=== PATIENT | male | born 1965 | race Caucasian/White ===

== ENCOUNTER 2017-06-12 17:07 | Inpatient (IN) | payer MEDICARE, SELFPAY ==
[~2017-06-12] VITALS: Ht 167.6 cm; Wt 122.5 kg
[2017-06-12] MEDS ORDERED: ZOLPIDEM TARTRATE 10 MG TABLET PO PRN (18:45)
[2017-06-12] MEDS ORDERED: LORazepam 2 MG TABLET PO PRN (18:45)
[2017-06-12] MEDS ORDERED: OLANZapine 5 MG RAPDIS TABLET PO PRN (18:45)
[2017-06-12] MEDS ORDERED: PNEUMOCOCCAL VACCINE POLYVALENT 0.5 ML VIAL [PPSV23] IM ONE (19:00)
[2017-06-12] MEDS ORDERED: INFLUENZA VIRUS VACCINE QVS 2017-18 (3YR+)/PF 60 MCG/0.5 ML SYRINGE IM ONE (19:00)
[2017-06-12] MEDS ORDERED: METF500T4 PO (19:36)
[2017-06-12] MEDS ORDERED: SITA50 PO (19:36)
[2017-06-12] MEDS ORDERED: LISI-660 PO (19:36)
[2017-06-12] MEDS ORDERED: INSU100V12 SQ (19:36)
[2017-06-12] MEDS ORDERED: TOPI25 PO (19:38)
[2017-06-12] MEDS ORDERED: LURA80 PO (19:38)
[2017-06-12] MEDS ORDERED: TRAZ-147 PO (19:38)
[2017-06-12 21:14] VITALS: BP 113/71
[2017-06-12 21:17] VITALS: BP 135/80
[2017-06-12] MEDS: TOPIRAMATE 25 MG TABLET PO SCH (21:44)
[2017-06-12] MEDS: TraZODone HCL 100 MG TABLET PO SCH (21:44)
[2017-06-12] MEDS ORDERED: DEXTROSE 50%-WATER 25 GM/50 ML SYRINGE IVP PRN (21:45)
[2017-06-12 21:57] LABS: GLUCOSE,POINT OF CARE 247 MG/DL (70-110)
[2017-06-12] MEDS: INSULIN DETEMIR 100 UNITS/ML SQ SCH (22:38)
[2017-06-12] MEDS: INSULIN ASPART 100 UNITS/ML SQ PRN (22:39)
[2017-06-13 04:08] VITALS: BP 150/108
[2017-06-13 05:28] LABS: GLUCOSE COMMENT 1 Received Meds; GLUCOSE,POINT OF CARE 218 MG/DL (70-110)
[2017-06-13 07:13] LABS: BASOPHILS # (AUTO) 0.03 K/uL (0.00-0.20); BASOPHILS % (AUTO) 0.5 % (0.0-2.0); EOSINOPHILS # (AUTO) 0.06 K/uL (0.00-0.70); EOSINOPHILS % (AUTO) 0.93 % (1.0-6.0); HEMATOCRIT 40.5 % (41-53); LYMPHOCYTES # (AUTO) 1.9 K/uL (1.0-4.8); LYMPHOCYTES % (AUTO) 28.8 % (22.0-44.0); MEAN CORPUSCULAR HEMOGLOBIN 29.5 pg (26.0-34.0); MEAN CORPUSCULAR HGB CONC 34.7 G/dL (31.0-37.0); MEAN CORPUSCULAR VOLUME 85 fL (80-100); MONOCYTES # (AUTO) 0.4 K/uL (0.1-1.0); NEUTROPHILS # (AUTO) 4.3 K/uL (1.8-7.7); NEUTROPHILS % (AUTO) 63.8 % (40.0-70.0); PLATELET COUNT (AUTO) 175 K/uL (150-450); RED BLOOD CELL COUNT(AUTO) 4.76 MIL/uL (4.50-5.90); RED CELL DISTRIBUTION WIDTH 14.3 % (11.5-14.5); WHITE BLOOD COUNT (AUTO) 6.8 K/uL (4.5-11.0)
[2017-06-13] MEDS: MetFORMIN HCL 500 MG TABLET PO SCH ×2 (07:25→16:58)
[2017-06-13] MEDS: INSULIN ASPART 100 UNITS/ML SQ PRN ×3 (07:26→22:29)
[2017-06-13 07:46] LABS: ALANINE AMINOTRANSFERASE 26 U/L (12-78); ALBUMIN 3.9 g/dL (3.4-5.0); ANION GAP 12 mmol/L (8-16); ASPARTATE AMINOTRANSFERASE 14 U/L (15-37); BILIRUBIN,TOTAL 1.5 mg/dL (0.1-1.0); CALCIUM, TOTAL 9.1 mg/dL (8.8-10.5); CARBON DIOXIDE 23 mmol/L (22-29); CHLORIDE 104 mmol/L (98-107); CHOL/HDL RATIO 3.2 (4.2-7.3); CREATININE 1.09 mg/dL (0.60-1.30); GLOMERULAR FILTR. RATE CALC > 60 mL/min (>60); POTASSIUM 3.7 mmol/L (3.5-5.1); SODIUM SERUM 139 mmol/L (136-145); THYROID STIMULATING HORMONE 0.55 uIU/mL (0.36-3.74); TOTAL PROTEIN, SERUM 7.7 g/dL (6.4-8.2); UREA NITROGEN, BLOOD 14 mg/dL (7-18)
[2017-06-13 07:48] LABS: HEMOGLOBIN A1C 8.4 % (4.5-6.2)
[2017-06-13 08:02] VITALS: BP 131/82
[2017-06-13] MEDS: SitaGLIPtin PHOSPHATE 50 MG TABLET PO SCH ×2 (09:22→16:58)
[2017-06-13 11:17] LABS: GLUCOSE,POINT OF CARE 233 MG/DL (70-110)
[2017-06-13 16:07] VITALS: BP 100/63
[2017-06-13 17:13] LABS: GLUCOSE,POINT OF CARE 246 MG/DL (70-110)
[2017-06-13] MEDS: TOPIRAMATE 25 MG TABLET PO SCH (20:29)
[2017-06-13] MEDS: TraZODone HCL 100 MG TABLET PO SCH (20:29)
[2017-06-13 20:37] LABS: GLUCOSE,POINT OF CARE 141 MG/DL (70-110)
[2017-06-13] MEDS ORDERED: LATUDA 40 MG PO SCH (21:00)
[2017-06-13] MEDS: INSULIN DETEMIR 100 UNITS/ML SQ SCH (22:28)
[2017-06-14 05:38] LABS: GLUCOSE COMMENT 1 Received Meds; GLUCOSE,POINT OF CARE 200 MG/DL (70-110)
[2017-06-14 05:56] VITALS: BP 131/71
[2017-06-14] MEDS: MetFORMIN HCL 500 MG TABLET PO SCH ×2 (07:08→17:02)
[2017-06-14] MEDS: INSULIN ASPART 100 UNITS/ML SQ PRN ×4 (07:08→21:24)
[2017-06-14 08:30] VITALS: BP 124/73
[2017-06-14] MEDS: SitaGLIPtin PHOSPHATE 50 MG TABLET PO SCH ×2 (09:41→17:02)
[2017-06-14 12:02] LABS: GLUCOSE,POINT OF CARE 167 MG/DL (70-110)
[2017-06-14 16:35] VITALS: BP 120/80
[2017-06-14 16:43] LABS: GLUCOSE,POINT OF CARE 184 MG/DL (70-110)
[2017-06-14] MEDS: ATORVASTATIN CALCIUM 20 MG TABLET PO SCH (20:26)
[2017-06-14] MEDS: TraZODone HCL 100 MG TABLET PO SCH (20:27)
[2017-06-14] MEDS: TOPIRAMATE 25 MG TABLET PO SCH (20:27)
[2017-06-14 21:07] LABS: GLUCOSE,POINT OF CARE 220 MG/DL (70-110)
[2017-06-14] MEDS: INSULIN DETEMIR 100 UNITS/ML SQ SCH (21:23)
[2017-06-14] MEDS: ASENAPINE 5 MG SUBLINGUAL TABLET SL SCH (21:31)
[2017-06-15 06:29] LABS: GLUCOSE COMMENT 1 Received Meds; GLUCOSE,POINT OF CARE 187 MG/DL (70-110)
[2017-06-15] MEDS: INSULIN ASPART 100 UNITS/ML SQ PRN ×4 (07:13→20:59)
[2017-06-15] MEDS: MetFORMIN HCL 500 MG TABLET PO SCH ×2 (07:17→16:56)
[2017-06-15] MEDS: LISINOPRIL 5 MG TABLET PO SCH (09:07)
[2017-06-15] MEDS: SitaGLIPtin PHOSPHATE 50 MG TABLET PO SCH ×2 (09:07→16:56)
[2017-06-15 12:08] LABS: GLUCOSE,POINT OF CARE 167 MG/DL (70-110)
[2017-06-15 17:08] LABS: GLUCOSE,POINT OF CARE 148 MG/DL (70-110)
[2017-06-15 18:00] VITALS: BP 108/63
[2017-06-15] MEDS: TraZODone HCL 100 MG TABLET PO SCH (20:55)
[2017-06-15] MEDS: ATORVASTATIN CALCIUM 20 MG TABLET PO SCH (20:56)
[2017-06-15] MEDS: TOPIRAMATE 25 MG TABLET PO SCH (20:56)
[2017-06-15] MEDS: ASENAPINE 5 MG SUBLINGUAL TABLET SL SCH (20:56)
[2017-06-15] MEDS: INSULIN DETEMIR 100 UNITS/ML SQ SCH (20:58)
[2017-06-16 00:23] LABS: GLUCOSE,POINT OF CARE 143 MG/DL (70-110)
[2017-06-16 06:23] LABS: GLUCOSE,POINT OF CARE 136 MG/DL (70-110)
[2017-06-16] MEDS: MetFORMIN HCL 500 MG TABLET PO SCH ×2 (07:14→17:05)
[2017-06-16 08:35] VITALS: BP 118/77
[2017-06-16] MEDS: SitaGLIPtin PHOSPHATE 50 MG TABLET PO SCH ×2 (08:43→17:05)
[2017-06-16] MEDS: LISINOPRIL 5 MG TABLET PO SCH (08:43)
[2017-06-16 09:31] VITALS: BP 118/77
[2017-06-16] MEDS: INSULIN ASPART 100 UNITS/ML SQ PRN ×3 (11:41→21:11)
[2017-06-16 11:48] LABS: GLUCOSE,POINT OF CARE 153 MG/DL (70-110)
[2017-06-16 19:03] LABS: GLUCOSE,POINT OF CARE 147 MG/DL (70-110)
[2017-06-16 19:53] VITALS: BP 141/88
[2017-06-16] MEDS: TOPIRAMATE 25 MG TABLET PO SCH (20:39)
[2017-06-16] MEDS: TraZODone HCL 100 MG TABLET PO SCH (20:39)
[2017-06-16] MEDS: ATORVASTATIN CALCIUM 20 MG TABLET PO SCH (20:39)
[2017-06-16] MEDS: ASENAPINE 5 MG SUBLINGUAL TABLET SL SCH (20:39)
[2017-06-16] MEDS: INSULIN DETEMIR 100 UNITS/ML SQ SCH (21:10)
[2017-06-17 00:08] LABS: GLUCOSE,POINT OF CARE 158 MG/DL (70-110)
[2017-06-17 06:06] VITALS: BP 105/70
[2017-06-17 06:08] LABS: GLUCOSE,POINT OF CARE 181 MG/DL (70-110)
[2017-06-17] MEDS: MetFORMIN HCL 500 MG TABLET PO SCH (06:57)
[2017-06-17] MEDS: INSULIN ASPART 100 UNITS/ML SQ PRN (07:17)
[2017-06-17 08:30] VITALS: BP 105/70
[2017-06-17] MEDS: LISINOPRIL 5 MG TABLET PO SCH (08:57)
[2017-06-17] MEDS: SitaGLIPtin PHOSPHATE 50 MG TABLET PO SCH (08:57)
[2017-06-17] MEDS ORDERED: ASEN5TAB6 SL (10:36)
[2017-06-17] MEDS ORDERED: ATOR20TA86 PO (10:37)
[2017-06-17 11:38] LABS: GLUCOSE,POINT OF CARE 136 MG/DL (70-110)
[2017-06-17] MEDS ORDERED: MAG HYDROX/AL HYDROX/SIMETH ES 30 ML SUSPENSION UDCUP PO PRN (12:00)
[2017-06-17] MEDS ORDERED: HydrOXYzine PAMOATE 50 MG CAPSULE PO PRN (12:00)
[2017-06-17] MEDS ORDERED: PROMETHAZINE HCL 25 MG TABLET PO PRN (12:00)
[2017-06-17] MEDS ORDERED: ACETAMINOPHEN 325 MG TABLET PO PRN (12:00)
[2017-06-17] MEDS ORDERED: LOPERAMIDE HCL 2 MG CAPSULE PO PRN (12:00)
[2017-06-17] MEDS ORDERED: MAGNESIUM HYDROXIDE SUSPENSION 30 ML UDCUP PO PRN (12:00)
[2017-06-17] MEDS ORDERED: GuaiFENesin/D-METHORPHAN [SUGAR-FREE] 200-20MG/10 ML SYRUP UDCUP PO PRN (12:00)
[2017-06-17] MEDS ORDERED: THIAMINE HCL 100 MG TABLET PO SCH (17:00)
[2017-06-18] MEDS ORDERED: MULTIVITAMINS WITH MINERALS, THERAPEUTIC TABLET PO SCH (09:00)
[2017-06-18] MEDS ORDERED: FOLIC ACID 1 MG TABLET PO SCH (09:00)
== END 2017-06-17 12:30 | disposition home or self-care (01) | DRG 885 ==
LOC: 3EX 18:38 → EDSTATUS 19:44
PROVIDERS: ADMIT Psychiatry & Neurology Psychiatry; ATTEND Psychiatry & Neurology Psychiatry
DX: F25.0 Schizoaffective disorder, bipolar type (principal); R45.851 Suicidal ideations; E11.9 Type 2 diabetes mellitus without complications; I10 Essential (primary) hypertension; Z28.21 Immunization not carried out because of patient refusal; Z56.0 Unemployment, unspecified; E78.5 Hyperlipidemia, unspecified; G47.30 Sleep apnea, unspecified; M19.90 Unspecified osteoarthritis, unspecified site; Z80.42 Family history of malignant neoplasm of prostate; Z83.3 Family history of diabetes mellitus; Z91.14 Patient's other noncompliance with medication regimen; Z80.3 Family history of malignant neoplasm of breast
CPT/HCPCS: 82962; 83036; 84439; 84443; 87081; 90471; 94660

== ENCOUNTER 2017-10-05 12:15 | Inpatient (IN) | payer MEDICARE ==
[~2017-10-05] VITALS: Ht 172.7 cm; Wt 127.9 kg
[~2017-10-05 12:15] MED LIST: ASEN5TAB6 SL; ATOR20TA86 PO; INSU100V12 SQ; LISI-660 PO; METF500T4 PO; SITA50 PO; TOPI25 PO; TRAZ-147 PO
[2017-10-05 12:20] VITALS: BP 136/72
[2017-10-05] MEDS ORDERED: LORazepam 2 MG TABLET PO PRN (13:00)
[2017-10-05] MEDS ORDERED: OLANZapine 5 MG RAPDIS TABLET PO PRN (13:00)
[2017-10-05] MEDS ORDERED: ZOLPIDEM TARTRATE 10 MG TABLET PO PRN (13:00)
[2017-10-05] MEDS ORDERED: PNEUMOCOCCAL VACCINE POLYVALENT 0.5 ML VIAL [PPSV23] IM ONE ×2 (13:30→14:00)
[2017-10-05 16:34] VITALS: BP 136/79
[2017-10-05] MEDS ORDERED: DEXTROSE 50%-WATER 25 GM/50 ML SYRINGE IVP PRN (18:15)
[2017-10-05 18:48] LABS: AMPHET/METH SCREEN,URINE NEGATIVE (NEGATIVE); BARBITURATE SCREEN, URINE NEGATIVE (NEGATIVE); BENZODIAZEPINES SCREEN,URINE NEGATIVE (NEGATIVE); CANNABINOID SCREEN,URINE NEGATIVE (NEGATIVE); COCAINE SCREEN,URINE NEGATIVE (NEGATIVE); METHADONE SCREEN, URINE NEGATIVE (NEGATIVE); OPIATE SCREEN,URINE NEGATIVE (NEGATIVE)
[2017-10-05 18:50] LABS: APPEARANCE,URINE CLEAR (CLEAR); BILIRUBIN,URINE NEGATIVE (NEGATIVE); GLUCOSE, URINE (UA) >=1000 mg/dL (NEGATIVE); KETONES,URINE NEGATIVE (NEGATIVE); LEUKOCYTE ESTERASE ,URINE NEGATIVE (NEGATIVE); NITRATE,URINE NEGATIVE (NEGATIVE); OCCULT BLOOD,URINE NEGATIVE (NEGATIVE); PH,URINE 6.5 (5.0-8.0); PROTEIN,URINE SEE CONFIRM (NEGATIVE); UROBILINOGEN,URINE 0.2 mg/dL (<=1.0)
[2017-10-05 19:00] LABS: BASOPHILS % (AUTO) 0.4 % (0.0-2.0); HEMATOCRIT 40.4 % (41-53); HEMOGLOBIN 14.2 g/dL (13.5-17.5); LYMPHOCYTES # (AUTO) 2.4 K/uL (1.0-4.8); LYMPHOCYTES % (AUTO) 28.1 % (22.0-44.0); MEAN CORPUSCULAR HEMOGLOBIN 30.5 pg (26.0-34.0); MEAN CORPUSCULAR HGB CONC 35.1 G/dL (31.0-37.0); MEAN CORPUSCULAR VOLUME 87 fL (80-100); MONOCYTES # (AUTO) 0.5 K/uL (0.1-1.0); MONOCYTES % (AUTO) 6.2 % (2.0-9.0); NEUTROPHILS # (AUTO) 5.6 K/uL (1.8-7.7); NEUTROPHILS % (AUTO) 64.3 % (40.0-70.0); PLATELET COUNT (AUTO) 200 K/uL (150-450); RED BLOOD CELL COUNT(AUTO) 4.66 MIL/uL (4.50-5.90); RED CELL DISTRIBUTION WIDTH 14.8 % (11.5-14.5)
[2017-10-05 19:02] LABS: PHENCYCLIDINE SCREEN,URINE NEGATIVE (NEGATIVE)
[2017-10-05 19:11] LABS: HEMOGLOBIN A1C 8.5 % (4.5-6.2)
[2017-10-05 19:20] LABS: SULFOSALICYLIC ACID,URINE 2+ (Negative)
[2017-10-05 19:25] LABS: BACTERIA,URINE Rare /HPF (None Seen); RBC,URINE None Seen /HPF (0-2); SQUAMOUS EPITHELIAL CELL,UR Rare /LPF (None Seen); WBC,URINE 0-2 /HPF (0-5)
[2017-10-05 19:40] LABS: ALANINE AMINOTRANSFERASE 34 U/L (12-78); ALBUMIN 3.6 g/dL (3.4-5.0); ALKALINE PHOSPHATASE 68 U/L (46-116); ANION GAP 11 mmol/L (8-16); ASPARTATE AMINOTRANSFERASE 24 U/L (15-37); CALCIUM, TOTAL 8.7 mg/dL (8.8-10.5); CARBON DIOXIDE 23 mmol/L (22-29); CHLORIDE 101 mmol/L (98-107); CHOL/HDL RATIO 5.3 (4.2-7.3); CHOLESTEROL 189 mg/dL (131-200); CREATININE 1.03 mg/dL (0.60-1.30); GLOMERULAR FILTR. RATE CALC > 60 mL/min (>60); GLUCOSE,RANDOM 237 mg/dL (70-110); HDL CHOLESTEROL 36 mg/dL (40-60); LDL CHOL (CALC.) 104 mg/dL (0-130); POTASSIUM 3.5 mmol/L (3.5-5.1); SODIUM SERUM 135 mmol/L (136-145); THYROID STIMULATING HORMONE 0.56 uIU/mL (0.36-3.74); TOTAL PROTEIN, SERUM 7.5 g/dL (6.4-8.2); TRIGLYCERIDES 247 mg/dL (15-150); UREA NITROGEN, BLOOD 13 mg/dL (7-18)
[2017-10-05] MEDS: TOPIRAMATE 100 MG TABLET PO SCH (20:10)
[2017-10-05] MEDS: ATORVASTATIN CALCIUM 20 MG TABLET PO SCH (20:10)
[2017-10-05] MEDS: ASENAPINE 5 MG SUBLINGUAL TABLET SL SCH (20:11)
[2017-10-05] MEDS: TraZODone HCL 100 MG TABLET PO SCH (20:11)
[2017-10-05 20:23] LABS: GLUCOMETER DEV NAME(LOC) 3EX 1; GLUCOSE,POINT OF CARE 207 MG/DL (70-110)
[2017-10-05] MEDS: INSULIN ASPART 100 UNITS/ML SQ PRN (20:33)
[2017-10-05] MEDS: INSULIN DETEMIR 100 UNITS/ML SQ SCH (20:33)
[2017-10-06 06:05] VITALS: BP 134/80
[2017-10-06 06:08] LABS: GLUCOMETER DEV NAME(LOC) 3EI B; GLUCOSE,POINT OF CARE 206 MG/DL (70-110)
[2017-10-06] MEDS: INSULIN ASPART 100 UNITS/ML SQ PRN ×4 (06:55→20:57)
[2017-10-06] MEDS: MetFORMIN HCL 500 MG TABLET PO SCH ×2 (07:10→17:34)
[2017-10-06 07:12] LABS: BASOPHILS # (AUTO) 0.04 K/uL (0.00-0.20); BASOPHILS % (AUTO) 0.6 % (0.0-2.0); EOSINOPHILS # (AUTO) 0.06 K/uL (0.00-0.70); EOSINOPHILS % (AUTO) 0.78 % (1.0-6.0); HEMATOCRIT 42.5 % (41-53); HEMOGLOBIN 14.7 g/dL (13.5-17.5); LYMPHOCYTES # (AUTO) 1.7 K/uL (1.0-4.8); LYMPHOCYTES % (AUTO) 23.8 % (22.0-44.0); MEAN CORPUSCULAR HEMOGLOBIN 29.9 pg (26.0-34.0); MEAN CORPUSCULAR HGB CONC 34.5 G/dL (31.0-37.0); MEAN CORPUSCULAR VOLUME 87 fL (80-100); MONOCYTES # (AUTO) 0.4 K/uL (0.1-1.0); MONOCYTES % (AUTO) 5.9 % (2.0-9.0); NEUTROPHILS # (AUTO) 4.9 K/uL (1.8-7.7); NEUTROPHILS % (AUTO) 68.9 % (40.0-70.0); PLATELET COUNT (AUTO) 186 K/uL (150-450); RED BLOOD CELL COUNT(AUTO) 4.91 MIL/uL (4.50-5.90)
[2017-10-06 07:21] LABS: HEMOGLOBIN A1C 8.3 % (4.5-6.2)
[2017-10-06 07:31] LABS: ALANINE AMINOTRANSFERASE 37 U/L (12-78); ALBUMIN 3.8 g/dL (3.4-5.0); ALKALINE PHOSPHATASE 68 U/L (46-116); ANION GAP 10 mmol/L (8-16); ASPARTATE AMINOTRANSFERASE 29 U/L (15-37); BILIRUBIN,TOTAL 1.3 mg/dL (0.1-1.0); CALCIUM, TOTAL 8.9 mg/dL (8.8-10.5); CARBON DIOXIDE 24 mmol/L (22-29); CHLORIDE 102 mmol/L (98-107); CHOL/HDL RATIO 5.4 (4.2-7.3); CHOLESTEROL 193 mg/dL (131-200); CREATININE 0.97 mg/dL (0.60-1.30); FREE T4 (FREE THYROXINE) 1.02 ng/dL (0.76-1.46); GLOMERULAR FILTR. RATE CALC > 60 mL/min (>60); GLUCOSE,RANDOM 229 mg/dL (70-110); HDL CHOLESTEROL 36 mg/dL (40-60); LDL CHOL (CALC.) 114 mg/dL (0-130); POTASSIUM 3.5 mmol/L (3.5-5.1); SODIUM SERUM 136 mmol/L (136-145); TOTAL PROTEIN, SERUM 7.7 g/dL (6.4-8.2); TRIGLYCERIDES 215 mg/dL (15-150); UREA NITROGEN, BLOOD 12 mg/dL (7-18)
[2017-10-06] MEDS: LISINOPRIL 5 MG TABLET PO SCH (09:05)
[2017-10-06] MEDS: TOPIRAMATE 25 MG TABLET PO SCH (09:07)
[2017-10-06] MEDS: SitaGLIPtin PHOSPHATE 50 MG TABLET PO SCH ×2 (09:07→16:50)
[2017-10-06 09:17] VITALS: BP 119/85
[2017-10-06 11:11] LABS: GLUCOMETER DEV NAME(LOC) 3EX 1; GLUCOSE,POINT OF CARE 181 MG/DL (70-110)
[2017-10-06 16:37] LABS: GLUCOMETER DEV NAME(LOC) 3EX 1; GLUCOSE,POINT OF CARE 179 MG/DL (70-110)
[2017-10-06 19:10] VITALS: BP 116/62
[2017-10-06 20:28] LABS: GLUCOMETER DEV NAME(LOC) 3EX 1; GLUCOSE,POINT OF CARE 197 MG/DL (70-110)
[2017-10-06] MEDS: ATORVASTATIN CALCIUM 20 MG TABLET PO SCH (20:32)
[2017-10-06] MEDS: ASENAPINE 5 MG SUBLINGUAL TABLET SL SCH (20:32)
[2017-10-06] MEDS: TraZODone HCL 100 MG TABLET PO SCH (20:32)
[2017-10-06] MEDS: TOPIRAMATE 100 MG TABLET PO SCH (20:32)
[2017-10-06] MEDS: INSULIN DETEMIR 100 UNITS/ML SQ SCH (20:56)
[2017-10-07 05:44] LABS: GLUCOMETER DEV NAME(LOC) 3EI B; GLUCOSE,POINT OF CARE 205 MG/DL (70-110)
[2017-10-07 05:46] VITALS: BP 126/80
[2017-10-07] MEDS: INSULIN ASPART 100 UNITS/ML SQ PRN ×4 (06:41→20:48)
[2017-10-07] MEDS: MetFORMIN HCL 500 MG TABLET PO SCH ×2 (06:42→16:35)
[2017-10-07 08:00] VITALS: BP 149/89
[2017-10-07] MEDS: SitaGLIPtin PHOSPHATE 50 MG TABLET PO SCH ×2 (09:01→16:34)
[2017-10-07] MEDS: TOPIRAMATE 25 MG TABLET PO SCH (09:02)
[2017-10-07] MEDS: LISINOPRIL 5 MG TABLET PO SCH (09:02)
[2017-10-07 11:38] LABS: GLUCOMETER DEV NAME(LOC) 3EX 1; GLUCOSE,POINT OF CARE 156 MG/DL (70-110)
[2017-10-07] MEDS ORDERED: GuaiFENesin/D-METHORPHAN [SUGAR-FREE] 200-20MG/10 ML SYRUP UDCUP PO PRN (12:00)
[2017-10-07] MEDS ORDERED: HydrOXYzine PAMOATE 50 MG CAPSULE PO PRN (12:00)
[2017-10-07] MEDS ORDERED: MAG HYDROX/AL HYDROX/SIMETH ES 30 ML SUSPENSION UDCUP PO PRN (12:00)
[2017-10-07] MEDS ORDERED: PROMETHAZINE HCL 25 MG TABLET PO PRN (12:00)
[2017-10-07] MEDS ORDERED: ACETAMINOPHEN 325 MG TABLET PO PRN (12:00)
[2017-10-07] MEDS ORDERED: LOPERAMIDE HCL 2 MG CAPSULE PO PRN (12:00)
[2017-10-07] MEDS ORDERED: MAGNESIUM HYDROXIDE SUSPENSION 30 ML UDCUP PO PRN (12:00)
[2017-10-07] MEDS: THIAMINE HCL 100 MG TABLET PO SCH (16:34)
[2017-10-07 16:58] LABS: GLUCOMETER DEV NAME(LOC) 3EX 1; GLUCOSE,POINT OF CARE 190 MG/DL (70-110)
[2017-10-07 17:03] VITALS: BP 146/90
[2017-10-07] MEDS: TraZODone HCL 150 MG TABLET PO SCH (20:12)
[2017-10-07] MEDS: TOPIRAMATE 100 MG TABLET PO SCH (20:12)
[2017-10-07] MEDS: ASENAPINE 5 MG SUBLINGUAL TABLET SL SCH (20:12)
[2017-10-07] MEDS: ATORVASTATIN CALCIUM 20 MG TABLET PO SCH (20:12)
[2017-10-07] MEDS: CarBAMazepine 200 MG TABLET PO SCH (20:32)
[2017-10-07 20:48] LABS: GLUCOMETER DEV NAME(LOC) 3EX 1; GLUCOSE,POINT OF CARE 210 MG/DL (70-110)
[2017-10-07] MEDS: INSULIN DETEMIR 100 UNITS/ML SQ SCH (21:01)
[2017-10-08 06:03] LABS: GLUCOMETER DEV NAME(LOC) 3EX 1; GLUCOSE,POINT OF CARE 192 MG/DL (70-110)
[2017-10-08] MEDS: INSULIN ASPART 100 UNITS/ML SQ PRN ×4 (06:53→21:28)
[2017-10-08] MEDS: MetFORMIN HCL 500 MG TABLET PO SCH ×2 (07:08→17:22)
[2017-10-08] MEDS: MULTIVITAMINS WITH MINERALS, THERAPEUTIC TABLET PO SCH (08:46)
[2017-10-08] MEDS: AmLODIPine BESYLATE 5 MG TABLET PO SCH (08:47)
[2017-10-08] MEDS: THIAMINE HCL 100 MG TABLET PO SCH ×2 (08:48→16:38)
[2017-10-08] MEDS: SitaGLIPtin PHOSPHATE 50 MG TABLET PO SCH ×2 (08:48→16:38)
[2017-10-08] MEDS: TOPIRAMATE 25 MG TABLET PO SCH (08:48)
[2017-10-08] MEDS: FOLIC ACID 1 MG TABLET PO SCH (08:49)
[2017-10-08] MEDS: LISINOPRIL 5 MG TABLET PO SCH (08:51)
[2017-10-08 09:00] VITALS: BP 130/78
[2017-10-08 11:38] LABS: GLUCOMETER DEV NAME(LOC) 3EX 1; GLUCOSE,POINT OF CARE 174 MG/DL (70-110)
[2017-10-08] MEDS: ASENAPINE 5 MG SUBLINGUAL TABLET SL SCH (17:22)
[2017-10-08 17:28] LABS: GLUCOMETER DEV NAME(LOC) 3EX 1; GLUCOSE,POINT OF CARE 204 MG/DL (70-110)
[2017-10-08 20:01] VITALS: BP 135/75
[2017-10-08] MEDS: TOPIRAMATE 100 MG TABLET PO SCH (21:12)
[2017-10-08] MEDS: CarBAMazepine 200 MG TABLET PO SCH (21:12)
[2017-10-08] MEDS: TraZODone HCL 150 MG TABLET PO SCH (21:12)
[2017-10-08] MEDS: ATORVASTATIN CALCIUM 20 MG TABLET PO SCH (21:12)
[2017-10-08 21:23] LABS: GLUCOMETER DEV NAME(LOC) 3EX 1; GLUCOSE,POINT OF CARE 230 MG/DL (70-110)
[2017-10-08] MEDS: INSULIN DETEMIR 100 UNITS/ML SQ SCH (21:26)
[2017-10-09 05:20] VITALS: BP 128/74
[2017-10-09 05:33] LABS: GLUCOMETER DEV NAME(LOC) 3EI B; GLUCOSE,POINT OF CARE 227 MG/DL (70-110)
[2017-10-09] MEDS: MetFORMIN HCL 500 MG TABLET PO SCH ×2 (07:03→16:30)
[2017-10-09] MEDS: INSULIN ASPART 100 UNITS/ML SQ PRN ×4 (07:04→20:59)
[2017-10-09] MEDS: FOLIC ACID 1 MG TABLET PO SCH (08:24)
[2017-10-09] MEDS: MULTIVITAMINS WITH MINERALS, THERAPEUTIC TABLET PO SCH (08:24)
[2017-10-09] MEDS: SitaGLIPtin PHOSPHATE 50 MG TABLET PO SCH ×2 (08:24→16:30)
[2017-10-09] MEDS: AmLODIPine BESYLATE 5 MG TABLET PO SCH (08:24)
[2017-10-09] MEDS: TOPIRAMATE 25 MG TABLET PO SCH (08:25)
[2017-10-09] MEDS: THIAMINE HCL 100 MG TABLET PO SCH ×2 (08:25→16:30)
[2017-10-09] MEDS: ASENAPINE 5 MG SUBLINGUAL TABLET SL SCH ×2 (08:26→16:30)
[2017-10-09] MEDS: LISINOPRIL 5 MG TABLET PO SCH (08:31)
[2017-10-09 09:26] VITALS: BP 107/67
[2017-10-09 11:28] LABS: GLUCOMETER DEV NAME(LOC) 3EX 1; GLUCOSE,POINT OF CARE 162 MG/DL (70-110)
[2017-10-09 16:53] LABS: GLUCOMETER DEV NAME(LOC) 3EX 1; GLUCOSE,POINT OF CARE 218 MG/DL (70-110)
[2017-10-09 17:03] VITALS: BP 126/76
[2017-10-09] MEDS: ATORVASTATIN CALCIUM 20 MG TABLET PO SCH (20:19)
[2017-10-09] MEDS: TraZODone HCL 150 MG TABLET PO SCH (20:19)
[2017-10-09] MEDS: CarBAMazepine 200 MG TABLET PO SCH (20:19)
[2017-10-09] MEDS: TOPIRAMATE 100 MG TABLET PO SCH (20:19)
[2017-10-09 20:57] LABS: GLUCOMETER DEV NAME(LOC) 3EX 1; GLUCOSE,POINT OF CARE 164 MG/DL (70-110)
[2017-10-09] MEDS: INSULIN DETEMIR 100 UNITS/ML SQ SCH (20:58)
[2017-10-10 05:20] VITALS: BP 126/68
[2017-10-10 05:28] LABS: GLUCOMETER DEV NAME(LOC) 3EI B; GLUCOSE,POINT OF CARE 265 MG/DL (70-110)
[2017-10-10] MEDS: INSULIN ASPART 100 UNITS/ML SQ PRN ×4 (07:06→20:56)
[2017-10-10] MEDS: MetFORMIN HCL 500 MG TABLET PO SCH ×2 (07:23→16:31)
[2017-10-10 08:11] VITALS: BP 116/81
[2017-10-10] MEDS: FOLIC ACID 1 MG TABLET PO SCH (08:32)
[2017-10-10] MEDS: TOPIRAMATE 25 MG TABLET PO SCH (08:32)
[2017-10-10] MEDS: AmLODIPine BESYLATE 5 MG TABLET PO SCH (08:32)
[2017-10-10] MEDS: MULTIVITAMINS WITH MINERALS, THERAPEUTIC TABLET PO SCH (08:32)
[2017-10-10] MEDS: SitaGLIPtin PHOSPHATE 50 MG TABLET PO SCH ×2 (08:32→16:26)
[2017-10-10] MEDS: THIAMINE HCL 100 MG TABLET PO SCH ×2 (08:32→16:26)
[2017-10-10] MEDS: LISINOPRIL 5 MG TABLET PO SCH (08:33)
[2017-10-10] MEDS: ASENAPINE 5 MG SUBLINGUAL TABLET SL SCH ×2 (08:33→16:26)
[2017-10-10 11:23] LABS: GLUCOMETER DEV NAME(LOC) 3EX 1; GLUCOSE,POINT OF CARE 179 MG/DL (70-110)
[2017-10-10] MEDS ORDERED: TRAZ150 PO (16:16)
[2017-10-10] MEDS ORDERED: TOPI25 PO (16:16)
[2017-10-10] MEDS ORDERED: TOPI100T31 PO (16:16)
[2017-10-10] MEDS ORDERED: ASEN5TAB6 SL (16:16)
[2017-10-10 16:37] LABS: GLUCOMETER DEV NAME(LOC) 3EX 1; GLUCOSE,POINT OF CARE 270 MG/DL (70-110)
[2017-10-10 17:51] VITALS: BP 121/71
[2017-10-10] MEDS: TOPIRAMATE 100 MG TABLET PO SCH (20:11)
[2017-10-10] MEDS: ATORVASTATIN CALCIUM 20 MG TABLET PO SCH (20:11)
[2017-10-10] MEDS: TraZODone HCL 150 MG TABLET PO SCH (20:12)
[2017-10-10] MEDS: CarBAMazepine 200 MG TABLET PO SCH (20:12)
[2017-10-10 20:23] LABS: GLUCOMETER DEV NAME(LOC) 3EX 1; GLUCOSE,POINT OF CARE 143 MG/DL (70-110)
[2017-10-10] MEDS ORDERED: AMLO-511 PO (20:33)
[2017-10-10] MEDS ORDERED: CARB200T6 PO (20:39)
[2017-10-10] MEDS: INSULIN DETEMIR 100 UNITS/ML SQ SCH (20:57)
[2017-10-11 02:03] VITALS: BP 138/94
[2017-10-11 06:17] LABS: GLUCOMETER DEV NAME(LOC) 3EI B; GLUCOSE,POINT OF CARE 196 MG/DL (70-110)
[2017-10-11] MEDS: MetFORMIN HCL 500 MG TABLET PO SCH (07:11)
[2017-10-11] MEDS: INSULIN ASPART 100 UNITS/ML SQ PRN ×2 (07:11→11:32)
[2017-10-11] MEDS: ASENAPINE 5 MG SUBLINGUAL TABLET SL SCH (08:50)
[2017-10-11] MEDS: SitaGLIPtin PHOSPHATE 50 MG TABLET PO SCH (08:50)
[2017-10-11] MEDS: MULTIVITAMINS WITH MINERALS, THERAPEUTIC TABLET PO SCH (08:50)
[2017-10-11] MEDS: FOLIC ACID 1 MG TABLET PO SCH (08:50)
[2017-10-11] MEDS: AmLODIPine BESYLATE 5 MG TABLET PO SCH (08:50)
[2017-10-11] MEDS: THIAMINE HCL 100 MG TABLET PO SCH (08:50)
[2017-10-11] MEDS: LISINOPRIL 5 MG TABLET PO SCH (08:51)
[2017-10-11] MEDS: TOPIRAMATE 25 MG TABLET PO SCH (08:51)
[2017-10-11 09:11] VITALS: BP 123/86
[2017-10-11 14:57] LABS: GLUCOMETER DEV NAME(LOC) 3EX 1; GLUCOSE,POINT OF CARE 168 MG/DL (70-110)
== END 2017-10-11 12:30 | disposition home or self-care (01) | DRG 885 ==
LOC: 3EX 13:09
PROVIDERS: ADMIT Psychiatry & Neurology Psychiatry; ATTEND Psychiatry & Neurology Psychiatry
PROC: 3E0234Z Introduction of Serum, Toxoid and Vaccine into Muscle, Percutaneous Approach (ICD-10-PCS; principal; 2017-10-05)
DX: F31.9 Bipolar disorder, unspecified (principal); R45.851 Suicidal ideations; Z68.41 Body mass index [BMI] 40.0-44.9, adult; E11.9 Type 2 diabetes mellitus without complications; E78.5 Hyperlipidemia, unspecified; G47.33 Obstructive sleep apnea (adult) (pediatric); I10 Essential (primary) hypertension; E66.9 Obesity, unspecified; M19.90 Unspecified osteoarthritis, unspecified site; Z82.49 Family history of ischemic heart disease and other diseases of the circulatory system; Z91.19 Patient's noncompliance with other medical treatment and regimen; Z83.3 Family history of diabetes mellitus; Z90.49 Acquired absence of other specified parts of digestive tract; Z23 Encounter for immunization
CPT/HCPCS: 80307; 82652; 82962; 83036; 84439; 84443; 90471; 94660

== ENCOUNTER → 2018-01-21 | Outpatient (CLI) | payer MEDICARE ==
[~2018-01-21] MED LIST changes: +AMLO-511 PO; +CARB200T6 PO; -METF500T4 PO; +METF500T6 PO; +TOPI100T31 PO; -TRAZ-147 PO; +TRAZ150 PO
[2018-01-21 17:04] LABS: BASOPHILS % (AUTO) 0.5 % (0.0-2.0); EOSINOPHILS % (AUTO) 0.5 % (1.0-6.0); HEMATOCRIT 41.5 % (41-53); HEMOGLOBIN 14.6 g/dL (13.5-17.5); LYMPHOCYTES # (AUTO) 1.8 K/uL (1.0-4.8); LYMPHOCYTES % (AUTO) 25.9 % (22.0-44.0); MEAN CORPUSCULAR HEMOGLOBIN 29.7 pg (26.0-34.0); MEAN CORPUSCULAR HGB CONC 35.2 G/dL (31.0-37.0); MEAN CORPUSCULAR VOLUME 84 fL (80-100); MONOCYTES # (AUTO) 0.5 K/uL (0.1-1.0); MONOCYTES % (AUTO) 6.4 % (2.0-9.0); NEUTROPHILS # (AUTO) 4.8 K/uL (1.8-7.7); NEUTROPHILS % (AUTO) 66.7 % (40.0-70.0); PLATELET COUNT (AUTO) 177 K/uL (150-450); RED BLOOD CELL COUNT(AUTO) 4.92 MIL/uL (4.50-5.90); RED CELL DISTRIBUTION WIDTH 13.8 % (11.5-14.5)
[2018-01-21 17:54] LABS: ALANINE AMINOTRANSFERASE 27 U/L (12-78); ALBUMIN 4.3 g/dL (3.4-5.0); ALKALINE PHOSPHATASE 80 U/L (46-116); ANION GAP 10 mmol/L (8-16); ASPARTATE AMINOTRANSFERASE 18 U/L (15-37); BILIRUBIN,TOTAL 0.5 mg/dL (0.1-1.0); CALCIUM, TOTAL 9.3 mg/dL (8.8-10.5); CARBAMAZEPINE (TEGRETOL) 2.5 mcg/mL (4.0-12.0); CARBON DIOXIDE 26 mmol/L (22-29); CHLORIDE 105 mmol/L (98-107); CREATININE 0.99 mg/dL (0.60-1.30); GLOMERULAR FILTR. RATE CALC > 60 mL/min (>60); GLUCOSE,RANDOM 154 mg/dL (70-110); POTASSIUM 4.5 mmol/L (3.5-5.1); SODIUM SERUM 141 mmol/L (136-145); TOTAL PROTEIN, SERUM 7.7 g/dL (6.4-8.2); UREA NITROGEN, BLOOD 12 mg/dL (7-18)
== END | disposition home or self-care (01) ==
LOC: LABMN 10:45
PROVIDERS: ATTEND Psychiatry & Neurology Psychiatry
DX: F25.9 Schizoaffective disorder, unspecified (principal)

== ENCOUNTER 2018-08-12 20:55 | Emergency (ER) | payer MEDICARE ==
[~2018-08-12] VITALS: Ht 177.8 cm; Wt 86.4 kg
[~2018-08-12 20:55] MED LIST changes: +METF-960 PO; -METF500T6 PO
[2018-08-12 21:42] LABS: BASOPHILS % (AUTO) 0.5 % (0.0-2.0); EOSINOPHILS % (AUTO) 0.5 % (1.0-6.0); HEMATOCRIT 39.8 % (41-53); HEMOGLOBIN 14.1 g/dL (13.5-17.5); LYMPHOCYTES # (AUTO) 2.2 K/uL (1.0-4.8); MEAN CORPUSCULAR HEMOGLOBIN 30.9 pg (26.0-34.0); MEAN CORPUSCULAR HGB CONC 35.4 G/dL (31.0-37.0); MEAN CORPUSCULAR VOLUME 87 fL (80-100); MONOCYTES # (AUTO) 0.6 K/uL (0.1-1.0); MONOCYTES % (AUTO) 8.3 % (2.0-9.0); NEUTROPHILS # (AUTO) 3.9 K/uL (1.8-7.7); NEUTROPHILS % (AUTO) 57.7 % (40.0-70.0); PLATELET COUNT (AUTO) 165 K/uL (150-450); RED BLOOD CELL COUNT(AUTO) 4.56 MIL/uL (4.50-5.90); RED CELL DISTRIBUTION WIDTH 13.6 % (11.5-14.5)
[2018-08-12] MEDS ORDERED: LORazepam 2 MG TABLET PO ONE (21:45)
[2018-08-12 21:49] LABS: ANION GAP 8 mmol/L (8-16); CALCIUM, TOTAL 8.5 mg/dL (8.8-10.5); CARBON DIOXIDE 28 mmol/L (22-29); CHLORIDE 106 mmol/L (98-107); GLOMERULAR FILTR. RATE CALC > 60 mL/min (>60); GLUCOSE,RANDOM 124 mg/dL (70-110); POTASSIUM 3.4 mmol/L (3.5-5.1); SODIUM SERUM 142 mmol/L (136-145); UREA NITROGEN, BLOOD 19 mg/dL (7-18)
[2018-08-12 22:03] LABS: ALANINE AMINOTRANSFERASE 28 U/L (12-78); ALBUMIN 3.6 g/dL (3.4-5.0); ALKALINE PHOSPHATASE 76 U/L (46-116); ASPARTATE AMINOTRANSFERASE 17 U/L (15-37); BILIRUBIN,TOTAL 0.3 mg/dL (0.1-1.0); CARBAMAZEPINE (TEGRETOL) 4.6 mcg/mL (4.0-12.0); TOTAL PROTEIN, SERUM 7.2 g/dL (6.4-8.2)
[2018-08-12 22:55] LABS: AMPHET/METH SCREEN,URINE NEGATIVE (NEGATIVE); BARBITURATE SCREEN, URINE NEGATIVE (NEGATIVE); BENZODIAZEPINES SCREEN,URINE NEGATIVE (NEGATIVE); CANNABINOID SCREEN,URINE POSITIVE (NEGATIVE); COCAINE SCREEN,URINE NEGATIVE (NEGATIVE); METHADONE SCREEN, URINE NEGATIVE (NEGATIVE); OPIATE SCREEN,URINE NEGATIVE (NEGATIVE)
[2018-08-12 22:56] LABS: PHENCYCLIDINE SCREEN,URINE NEGATIVE (NEGATIVE)
[2018-08-12 23:30] VITALS: BP 134/88
== END 2018-08-13 00:35 | disposition home or self-care (01) ==
LOC: EMS 20:56
DX: F31.9 Bipolar disorder, unspecified (principal); F12.90 Cannabis use, unspecified, uncomplicated; Z90.49 Acquired absence of other specified parts of digestive tract; Z79.899 Other long term (current) drug therapy
CPT/HCPCS: 36415; 80053; 80156; 80307; 85025; 99284; G0480

== ENCOUNTER 2018-11-20 16:08 | Inpatient (IN) | payer MEDICARE ==
[~2018-11-20] VITALS: Ht 167.6 cm; Wt 106.0 kg
[2018-11-20 16:56] LABS: BASOPHILS % (AUTO) 0.6 % (0.0-2.0); EOSINOPHILS % (AUTO) 1.2 % (1.0-6.0); HEMATOCRIT 39.4 % (41-53); HEMOGLOBIN 13.8 g/dL (13.5-17.5); LYMPHOCYTES # (AUTO) 1.9 K/uL (1.0-4.8); LYMPHOCYTES % (AUTO) 23.5 % (22.0-44.0); MEAN CORPUSCULAR HEMOGLOBIN 30.2 pg (26.0-34.0); MEAN CORPUSCULAR VOLUME 86 fL (80-100); MONOCYTES # (AUTO) 0.6 K/uL (0.1-1.0); MONOCYTES % (AUTO) 7.2 % (2.0-9.0); NEUTROPHILS # (AUTO) 5.6 K/uL (1.8-7.7); NEUTROPHILS % (AUTO) 67.5 % (40.0-70.0); PLATELET COUNT (AUTO) 166 K/uL (150-450); RED BLOOD CELL COUNT(AUTO) 4.56 MIL/uL (4.50-5.90); RED CELL DISTRIBUTION WIDTH 13.9 % (11.5-14.5)
[2018-11-20 17:07] LABS: ANION GAP 9 mmol/L (8-16); CALCIUM, TOTAL 9.5 mg/dL (8.8-10.5); CARBON DIOXIDE 25 mmol/L (22-29); CHLORIDE 105 mmol/L (98-107); GLOMERULAR FILTR. RATE CALC > 60 mL/min (>60); GLUCOSE,RANDOM 132 mg/dL (70-110); SODIUM SERUM 139 mmol/L (136-145); UREA NITROGEN, BLOOD 24 mg/dL (7-18)
[2018-11-20 17:12] LABS: ALANINE AMINOTRANSFERASE 18 U/L (12-78); ALBUMIN 3.7 g/dL (3.4-5.0); ALKALINE PHOSPHATASE 68 U/L (46-116); ASPARTATE AMINOTRANSFERASE 13 U/L (15-37); BILIRUBIN,TOTAL 0.4 mg/dL (0.1-1.0); TOTAL PROTEIN, SERUM 7.4 g/dL (6.4-8.2)
[2018-11-20 17:19] LABS: GLUCOSE,POINT OF CARE 132 MG/DL (70-110)
[2018-11-20 17:52] LABS: APPEARANCE,URINE CLEAR (CLEAR); BILIRUBIN,URINE NEGATIVE (NEGATIVE); GLUCOSE, URINE (UA) NEGATIVE (NEGATIVE); KETONES,URINE NEGATIVE (NEGATIVE); LEUKOCYTE ESTERASE ,URINE NEGATIVE (NEGATIVE); NITRATE,URINE NEGATIVE (NEGATIVE); OCCULT BLOOD,URINE NEGATIVE (NEGATIVE); PROTEIN,URINE TRACE (NEGATIVE); UROBILINOGEN,URINE 0.2 mg/dL (<=1.0)
[2018-11-20 18:15] LABS: AMPHET/METH SCREEN,URINE NEGATIVE (NEGATIVE); BARBITURATE SCREEN, URINE NEGATIVE (NEGATIVE); BENZODIAZEPINES SCREEN,URINE NEGATIVE (NEGATIVE); CANNABINOID SCREEN,URINE POSITIVE (NEGATIVE); COCAINE SCREEN,URINE NEGATIVE (NEGATIVE); METHADONE SCREEN, URINE NEGATIVE (NEGATIVE); OPIATE SCREEN,URINE NEGATIVE (NEGATIVE)
[2018-11-20 18:16] LABS: PHENCYCLIDINE SCREEN,URINE NEGATIVE (NEGATIVE)
[2018-11-20] MEDS ORDERED: ZOLPIDEM TARTRATE 10 MG TABLET PO PRN (20:00)
[2018-11-20] MEDS ORDERED: HALOPERIDOL 5 MG TABLET PO PRN (20:00)
[2018-11-20 20:41] LABS: CHOL/HDL RATIO 4.1 (4.2-7.3); FREE T4 (FREE THYROXINE) 0.81 ng/dL (0.76-1.46); THYROID STIMULATING HORMONE 0.45 uIU/mL (0.36-3.74)
[2018-11-20 20:42] VITALS: BP 116/66
[2018-11-20] MEDS ORDERED: DEXTROSE 50%-WATER 25 GM/50 ML SYRINGE IVP PRN (20:45)
[2018-11-20 21:20] LABS: HEMOGLOBIN A1C 6.6 % (4.5-6.2)
[2018-11-20] MEDS: ATORVASTATIN CALCIUM 20 MG TABLET PO SCH (21:23)
[2018-11-20] MEDS: INSULIN LISPRO 100 UNITS/ML SQ PRN (21:52)
[2018-11-20] MEDS: INSULIN DETEMIR 100 UNITS/ML SQ SCH (21:54)
[2018-11-20 22:04] LABS: GLUCOMETER DEV NAME(LOC) 3EX.; GLUCOSE,POINT OF CARE 162 MG/DL (70-110)
[2018-11-21 05:54] LABS: GLUCOMETER DEV NAME(LOC) 3E.I; GLUCOSE,POINT OF CARE 114 MG/DL (70-110)
[2018-11-21] MEDS: MetFORMIN HCL 500 MG TABLET PO SCH ×2 (06:31→17:37)
[2018-11-21] MEDS ORDERED: LOPERAMIDE HCL 2 MG CAPSULE PO PRN (07:15)
[2018-11-21] MEDS ORDERED: MAG HYDROX/AL HYDROX/SIMETH ES 30 ML SUSPENSION UDCUP PO PRN (07:15)
[2018-11-21] MEDS ORDERED: BENZOCAINE/MENTHOL LOZENGE MM PRN (07:15)
[2018-11-21] MEDS ORDERED: ONDANSETRON HCL 4 MG TABLET PO PRN (07:15)
[2018-11-21] MEDS ORDERED: PETROLATUM,WHITE 71 GM JELLY TP PRN (07:15)
[2018-11-21] MEDS ORDERED: MAGNESIUM HYDROXIDE SUSPENSION 30 ML UDCUP PO PRN (07:15)
[2018-11-21] MEDS ORDERED: BACITRACIN 28.4 GM OINTMENT TP PRN (07:15)
[2018-11-21] MEDS ORDERED: CloNIDine HCL 0.1 MG TABLET PO PRN (07:15)
[2018-11-21] MEDS ORDERED: IBUPROFEN 600 MG TABLET PO PRN (07:15)
[2018-11-21] MEDS ORDERED: ALBUTEROL SULFATE HFA 90 MCG/PUFF 8 GM INHALER IH PRN (07:15)
[2018-11-21] MEDS ORDERED: ACETAMINOPHEN 325 MG TABLET PO PRN (07:15)
[2018-11-21 08:05] VITALS: BP 118/69
[2018-11-21] MEDS: LISINOPRIL 5 MG TABLET PO SCH (08:48)
[2018-11-21] MEDS: DOCUSATE SODIUM 100 MG CAPSULE PO SCH (08:48)
[2018-11-21] MEDS: AmLODIPine BESYLATE 5 MG TABLET PO SCH (08:48)
[2018-11-21] MEDS: OMEPRAZOLE 20 MG CAPSULE PO SCH (08:48)
[2018-11-21 11:09] LABS: GLUCOMETER DEV NAME(LOC) 3EX.; GLUCOSE,POINT OF CARE 145 MG/DL (70-110)
[2018-11-21] MEDS: INSULIN LISPRO 100 UNITS/ML SQ PRN ×2 (11:22→21:51)
[2018-11-21 16:28] VITALS: BP 132/75
[2018-11-21 17:08] LABS: GLUCOMETER DEV NAME(LOC) 3EX.; GLUCOSE,POINT OF CARE 118 MG/DL (70-110)
[2018-11-21] MEDS: ZIPRASIDONE HCL 40 MG CAPSULE PO SCH (17:37)
[2018-11-21] MEDS: CarBAMazepine 200 MG TABLET PO SCH (20:45)
[2018-11-21] MEDS: TraZODone HCL 150 MG TABLET PO SCH (20:45)
[2018-11-21] MEDS: ATORVASTATIN CALCIUM 20 MG TABLET PO SCH (20:45)
[2018-11-21] MEDS: TOPIRAMATE 100 MG TABLET PO SCH (20:45)
[2018-11-21 20:48] LABS: GLUCOMETER DEV NAME(LOC) 3EX.; GLUCOSE,POINT OF CARE 186 MG/DL (70-110)
[2018-11-21] MEDS: INSULIN DETEMIR 100 UNITS/ML SQ SCH (21:50)
[2018-11-22 02:10] VITALS: BP 133/77
[2018-11-22] MEDS: LORazepam 2 MG TABLET PO PRN (02:14)
[2018-11-22 06:10] LABS: GLUCOMETER DEV NAME(LOC) 3E.I; GLUCOSE,POINT OF CARE 119 MG/DL (70-110)
[2018-11-22] MEDS: MetFORMIN HCL 500 MG TABLET PO SCH ×2 (06:37→16:54)
[2018-11-22] MEDS: ZIPRASIDONE HCL 40 MG CAPSULE PO SCH ×2 (06:37→16:54)
[2018-11-22] MEDS: DOCUSATE SODIUM 100 MG CAPSULE PO SCH (09:59)
[2018-11-22] MEDS: LISINOPRIL 5 MG TABLET PO SCH (09:59)
[2018-11-22] MEDS: AmLODIPine BESYLATE 5 MG TABLET PO SCH (10:00)
[2018-11-22] MEDS: TOPIRAMATE 25 MG TABLET PO SCH (10:00)
[2018-11-22] MEDS: OMEPRAZOLE 20 MG CAPSULE PO SCH (10:00)
[2018-11-22 11:38] LABS: GLUCOMETER DEV NAME(LOC) 3EX.; GLUCOSE,POINT OF CARE 150 MG/DL (70-110)
[2018-11-22 12:47] VITALS: BP 131/76
[2018-11-22] MEDS: INSULIN LISPRO 100 UNITS/ML SQ PRN ×2 (12:49→17:32)
[2018-11-22 17:29] LABS: GLUCOMETER DEV NAME(LOC) 3EX.; GLUCOSE,POINT OF CARE 187 MG/DL (70-110)
[2018-11-22 17:35] VITALS: BP 135/72
[2018-11-22] MEDS: ATORVASTATIN CALCIUM 20 MG TABLET PO SCH (20:01)
[2018-11-22] MEDS: TOPIRAMATE 100 MG TABLET PO SCH (20:01)
[2018-11-22] MEDS: CarBAMazepine 200 MG TABLET PO SCH (20:01)
[2018-11-22] MEDS: TraZODone HCL 150 MG TABLET PO SCH (20:01)
[2018-11-22 20:14] LABS: GLUCOMETER DEV NAME(LOC) 3EX.; GLUCOSE,POINT OF CARE 119 MG/DL (70-110)
[2018-11-22] MEDS: INSULIN DETEMIR 100 UNITS/ML SQ SCH (20:41)
[2018-11-23 05:49] LABS: GLUCOMETER DEV NAME(LOC) 3E.I; GLUCOSE,POINT OF CARE 102 MG/DL (70-110)
[2018-11-23] MEDS: ZIPRASIDONE HCL 40 MG CAPSULE PO SCH ×2 (06:31→16:38)
[2018-11-23] MEDS: MetFORMIN HCL 500 MG TABLET PO SCH ×2 (06:31→16:38)
[2018-11-23] MEDS: DOCUSATE SODIUM 100 MG CAPSULE PO SCH (08:57)
[2018-11-23] MEDS: OMEPRAZOLE 20 MG CAPSULE PO SCH (08:57)
[2018-11-23] MEDS: LISINOPRIL 5 MG TABLET PO SCH (08:57)
[2018-11-23] MEDS: AmLODIPine BESYLATE 5 MG TABLET PO SCH (08:57)
[2018-11-23] MEDS: TOPIRAMATE 25 MG TABLET PO SCH (08:57)
[2018-11-23 09:30] VITALS: BP 127/68
[2018-11-23 11:39] LABS: GLUCOMETER DEV NAME(LOC) 3EX.; GLUCOSE,POINT OF CARE 115 MG/DL (70-110)
[2018-11-23 17:19] LABS: GLUCOMETER DEV NAME(LOC) 3EX.; GLUCOSE,POINT OF CARE 116 MG/DL (70-110)
[2018-11-23 17:52] VITALS: BP 120/74
[2018-11-23] MEDS: TOPIRAMATE 100 MG TABLET PO SCH (20:27)
[2018-11-23] MEDS: ATORVASTATIN CALCIUM 20 MG TABLET PO SCH (20:27)
[2018-11-23] MEDS: TraZODone HCL 150 MG TABLET PO SCH (20:27)
[2018-11-23] MEDS: CarBAMazepine 200 MG TABLET PO SCH (20:27)
[2018-11-23 20:28] LABS: GLUCOMETER DEV NAME(LOC) 3EX.; GLUCOSE,POINT OF CARE 138 MG/DL (70-110)
[2018-11-23] MEDS: INSULIN DETEMIR 100 UNITS/ML SQ SCH (21:00)
[2018-11-23] MEDS: LORazepam 2 MG TABLET PO PRN (21:51)
[2018-11-24 05:35] LABS: GLUCOMETER DEV NAME(LOC) 3E.I; GLUCOSE,POINT OF CARE 134 MG/DL (70-110)
[2018-11-24] MEDS: MetFORMIN HCL 500 MG TABLET PO SCH ×2 (06:36→17:22)
[2018-11-24] MEDS: ZIPRASIDONE HCL 40 MG CAPSULE PO SCH ×2 (06:36→17:22)
[2018-11-24] MEDS: LISINOPRIL 5 MG TABLET PO SCH (08:58)
[2018-11-24] MEDS: TOPIRAMATE 25 MG TABLET PO SCH (08:58)
[2018-11-24] MEDS: OMEPRAZOLE 20 MG CAPSULE PO SCH (08:59)
[2018-11-24] MEDS: DOCUSATE SODIUM 100 MG CAPSULE PO SCH (08:59)
[2018-11-24] MEDS: AmLODIPine BESYLATE 5 MG TABLET PO SCH (08:59)
[2018-11-24 10:05] VITALS: BP 136/89
[2018-11-24 11:19] LABS: GLUCOMETER DEV NAME(LOC) 3EX.; GLUCOSE,POINT OF CARE 102 MG/DL (70-110)
[2018-11-24 16:24] LABS: GLUCOMETER DEV NAME(LOC) 3EX.; GLUCOSE,POINT OF CARE 134 MG/DL (70-110)
[2018-11-24 17:10] VITALS: BP 144/74
[2018-11-24] MEDS ORDERED: DENTURE CLEANSER TABLET [8'S] DT PRN (19:45)
[2018-11-24] MEDS: TraZODone HCL 150 MG TABLET PO SCH (20:28)
[2018-11-24] MEDS: TOPIRAMATE 100 MG TABLET PO SCH (20:28)
[2018-11-24] MEDS: CarBAMazepine 200 MG TABLET PO SCH (20:29)
[2018-11-24] MEDS: ATORVASTATIN CALCIUM 20 MG TABLET PO SCH (20:29)
[2018-11-24 20:33] LABS: GLUCOMETER DEV NAME(LOC) 3EX.; GLUCOSE,POINT OF CARE 129 MG/DL (70-110)
[2018-11-24] MEDS: INSULIN DETEMIR 100 UNITS/ML SQ SCH (21:14)
[2018-11-25 05:54] LABS: GLUCOMETER DEV NAME(LOC) 3E.I; GLUCOSE,POINT OF CARE 105 MG/DL (70-110)
[2018-11-25] MEDS: ZIPRASIDONE HCL 40 MG CAPSULE PO SCH (06:30)
[2018-11-25] MEDS: MetFORMIN HCL 500 MG TABLET PO SCH (06:30)
[2018-11-25] MEDS: TOPIRAMATE 25 MG TABLET PO SCH (08:23)
[2018-11-25] MEDS: OMEPRAZOLE 20 MG CAPSULE PO SCH (08:23)
[2018-11-25] MEDS: AmLODIPine BESYLATE 5 MG TABLET PO SCH (08:24)
[2018-11-25] MEDS: LISINOPRIL 5 MG TABLET PO SCH (08:24)
[2018-11-25] MEDS: DOCUSATE SODIUM 100 MG CAPSULE PO SCH (08:25)
[2018-11-25 09:06] VITALS: BP 115/78
[2018-11-25] MEDS ORDERED: TRAZ150 PO (09:47)
[2018-11-25] MEDS ORDERED: TOPI100T37 PO (09:47)
[2018-11-25] MEDS ORDERED: ZIPR40CA2 PO (09:47)
[2018-11-25] MEDS ORDERED: TOPI25 PO (09:47)
[2018-11-25] MEDS ORDERED: DSS100 PO (09:51)
[2018-11-25] MEDS ORDERED: OMEP20 PO (09:51)
== END 2018-11-25 11:51 | disposition home or self-care (01) | DRG 885 ==
LOC: EMS 16:09 → 3EX 20:04
PROVIDERS: ADMIT Psychiatry & Neurology Psychiatry; ATTEND Psychiatry & Neurology Psychiatry
DX: F31.32 Bipolar disorder, current episode depressed, moderate (principal); R45.851 Suicidal ideations; G47.33 Obstructive sleep apnea (adult) (pediatric); F12.90 Cannabis use, unspecified, uncomplicated; E78.00 Pure hypercholesterolemia, unspecified; E11.9 Type 2 diabetes mellitus without complications; I10 Essential (primary) hypertension; Z79.899 Other long term (current) drug therapy; Z91.5 Personal history of self-harm
CPT/HCPCS: 82948; 83036; 84439; 84443; 94660; G0378; G0480